=== PATIENT | male | born 1955 | race Caucasian/White ===

== ENCOUNTER → 2017-10-14 | Outpatient (REF) | LOC: NONPT 15:41 | DX: Z02.89 Encounter for other administrative examinations (principal) | CPT/HCPCS: 36415; 80053; 80061; 82947; 83036; 83540; 84100; 84550; 85025; 86140; G0103 ==

== ENCOUNTER 2017-10-21 12:34 | Outpatient (CLI) ==
--- NOTE | 2017-10-21 13:13 | US ---
EXAM: Left lower extremity venous Doppler History: Left lower extremity pain. Technique: Multiple sonographic images through the left lower extremity were obtained. Color duplex Doppler was used to interrogate vascular flow. Findings: No flow with no compression involving the left profunda, superficial femoral, popliteal, p eroneal and posterior tibial veins. Partial flow with partial compression within the left common fem oral and left greater saphenous vein. Impression: Extensive left lower extremity deep venous thrombosis. Results communicated to Dr. Ponce after the examination by the technologist.
== END 2017-10-21 12:35 | disposition home or self-care (01) ==
LOC: RAD 12:34
PROVIDERS: ATTEND Family Medicine
DX: R60.0 Localized edema (principal); I82.492 Acute embolism and thrombosis of other specified deep vein of left lower extremity
CPT/HCPCS: 36415; 85025

== ENCOUNTER 2017-11-02 10:00 | Outpatient (CLI) | END 2017-11-02 10:01 | disposition home or self-care (01) | LOC: LAB 10:00 | PROVIDERS: ATTEND Family Medicine | DX: I82.4Z2 Acute embolism and thrombosis of unspecified deep veins of left distal lower extremity (principal); R07.89 Other chest pain | CPT/HCPCS: 36415; 93005; 93010 ==

== ENCOUNTER 2017-11-09 07:46 | Outpatient (CLI) ==
--- NOTE | 2017-11-09 09:19 | CT ---
EXAM: CTA of the chest. History: Chest pain, left lower extremity deep venous thrombosis. Comparison: Left lower extremity venous Doppler 10/21/2017 Technique: Multiplanar CT images through the thorax were obtained following administration of IV con trast. MIP images and 3-D reconstructions were also provided. Findings: Heart is borderline enlarged. No pericardial effusion. No pathologically enlarged thorac ic lymph nodes. Small filling defects seen within the distal left main pulmonary artery and there are small filling defects seen within branches of the left lower lobe pulmonary arteries. No pleural fl uid and no pneumothorax. No suspicious lung masses or lung nodules. No consolidation. Dependent at electasis. Within the visualized upper abdomen, no acute findings. No acute osseous abnormalities. Impression: Small left-sided pulmonary emboli. Critical results communicated to Dr. Ponce at 9:14 a.m. 11/09/2017
== END 2017-11-09 07:47 | disposition home or self-care (01) ==
LOC: RAD 07:46
PROVIDERS: ATTEND Family Medicine
DX: R60.0 Localized edema (principal); I82.402 Acute embolism and thrombosis of unspecified deep veins of left lower extremity

== ENCOUNTER 2017-11-19 09:25 | Outpatient (CLI) ==
--- NOTE | 2017-11-19 10:11 | US ---
EXAM: Left lower extremity venous Doppler. History: Follow-up left lower extremity venous thrombosis. Comparison: Left lower extremity venous Doppler 10/21/2017 Technique: Multiple sonographic images through the left lower extremity were obtained. Color duplex Doppler was used to interrogate vascular flow. Findings: Persistent but improving left lower extremity deep venous thrombosis with still no zamzam venkatesh of the right superficial femoral vein, right peroneal vein, and right posterior tibial vein. Th ere is now partial compression of the right popliteal vein. There is normal spontaneous flow and nor mal compression within the left common femoral, left greater saphenous and left profunda veins. Impression: Persistent but improving left lower extremity venous thrombosis.
== END 2017-11-19 09:26 | disposition home or self-care (01) ==
LOC: RAD 09:25
PROVIDERS: ATTEND Family Medicine
DX: I82.512 Chronic embolism and thrombosis of left femoral vein (principal); R60.0 Localized edema

== ENCOUNTER 2017-11-22 06:34 | Outpatient (CLI) ==
--- NOTE | 2017-11-22 13:15 | STRESSECHO ---
Date of Test: 11/22/17 Ordering Physician: DR. 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 Reason for Exam: HYPERLIPIDEMIA, ATYPICAL CHEST PAIN, DVT Smoking History: QUIT 18 YRS AGO Resting EKG: SINUS RHYTHM/ NO ACUTE CHANGES Target Heart Rate: 133/157 S-T SEGMENT STAGE MPH/GRADE HEART RATE BPM BLOOD PRESSURE MMHG RHYTHM +/- ELEVATION DEPRESSION SYMPTOMS,COMMENTS AT REST 50 146/82 SR X NONE 1 1.7/10% 90 160/92 SR X NONE 2 2.5/12% 115 160/88 SR X NONE 3 3.4/14% 4 4.2/16% 5 5.0/18% Immediately After 134 SR X FATIGUE Minutes Post Exercise 5:00 71 150/76 SR X NO COMMENTS Minutes Post Exercise DURATION OF EXERCISE: 7:01 MAXIMUM HEART RATE REACHED: 134 REASON FOR TERMINATION: FATIGUE 97% OXYGEN SATURATION WITH EXERCISE ON ROOM AIR METS 10.1 INTERPRETATION: 1. NO EVIDENCE OF ISCHEMIA BY ST-T WAVE 2. NO CHEST PAIN OR DISCOMFORT 3. COUPLE OF PVC'S WITH EXERCISE 4. BLOOD PRESSURE RESPONSE: ADEQUATE NORMAL LEFT VENTRICULAR CONTRACTILITY--RESTING AND POST EXERCISE MTDD
--- NOTE | 2017-11-22 13:30 | ECHOSTRESS ---
Date of Exam: 11/22/17 Ordering Physician: DR. RICHARD HAMILTON Reason for Echo: HYPERLIPIDEMIA, ATYPICAL CHEST PAIN, DVT, STRESS TEST--NO ISCHEMIA M-Mode Normal Adult Results LV Dimensions Normal Adult Results AoV Opening excursions >1.6 LVEDD-base- 3.5-5.8 Ao root dimensions 2.0-3.7 LVESD-base- 3.1-4.6 L. Atrium dimensions 1.9-3.8 Post. Wall thickness 0.8-1.1 IV septum (thickness) 0.7-1.2 Post. Wall excursion 0.72-1.3 Septal motion Systolic motion R. Ventricular cavity 1.5-2.0 LVEF 60% Paradoxical septal wall motion 2-D: NORMAL LEFT VENTRICULAR CONTRACTILITY--RESTING AND POST EXERCISE M-MODE: MV: AV: TV: PV: CHAMBER SIZE: WALL MOTION: NORMAL LEFT VENTRICULAR CONTRACTILITY--RESTING AND POST EXERCISE PERICARDIUM: INTERPRETATION: 1. NORMAL LEFT VENTRICULAR CONTRACTILITY--RESTING AND POST EXERCISE MTDD
== END 2017-11-22 06:35 | disposition home or self-care (01) ==
LOC: CAR 06:34
PROVIDERS: ATTEND Family Medicine
DX: R07.89 Other chest pain (principal); I82.4Z2 Acute embolism and thrombosis of unspecified deep veins of left distal lower extremity; Z86.39 Personal history of other endocrine, nutritional and metabolic disease

== ENCOUNTER 2018-05-24 12:20 | Outpatient (CLI) ==
--- NOTE | 2018-05-24 13:40 | US ---
EXAM: Left lower extremity venous Doppler History: Follow-up left lower extremity venous thrombosis. Comparison: Left lower extremity venous Doppler 11/19/2017 Technique: Multiple sonographic images through the left lower extremity were obtained. Color duplex Doppler was used to interrogate vascular flow. Findings: Partial flow with partial compression involving the left superficial femoral, peroneal and posterior tibial veins is persistent but improved compared to the prior study. The rest of the left lower extr emity venous structures demonstrate spontaneous flow with normal compression and normal augmentation. Impression: Partial nonocclusive thrombosis within the left lower extremity involving the superficia l femoral, peroneal and posterior tibial veins is improved compared to the prior study.
== END 2018-05-24 12:21 | disposition home or self-care (01) ==
LOC: RAD 12:20
PROVIDERS: ATTEND Family Medicine
DX: I82.4Z2 Acute embolism and thrombosis of unspecified deep veins of left distal lower extremity (principal)

== ENCOUNTER 2018-11-24 12:30 | Outpatient (CLI) | END 2018-11-24 12:31 | disposition home or self-care (01) | LOC: RHC-LAB 12:30 | PROVIDERS: ATTEND Family Medicine | DX: Z13.6 Encounter for screening for cardiovascular disorders (principal) | CPT/HCPCS: 36415; 80053; 80061 ==

== ENCOUNTER 2018-12-06 09:30 | Outpatient (CLI) | END 2018-12-06 09:31 | disposition home or self-care (01) | LOC: RHC-LAB 09:30 → FCC-LAB 09:31 | PROVIDERS: ATTEND Family Medicine | DX: R97.20 Elevated prostate specific antigen [PSA] (principal) | CPT/HCPCS: 36415; 84153 ==